=== PATIENT | male | born 1970 | race Hispanic/Latino ===

== ENCOUNTER 2024-11-15 13:33 | Emergency (ER) | payer MEDICAID ==
[~2024-11-15] VITALS: Ht 172.7 cm; Wt 104.3 kg
[2024-11-15 15:45] VITALS: PULSE 80; RESP 18; TEMP 98.5
[2024-11-15] MEDS ORDERED: DOXYCYCLINE HY100 MG PO (17:29)
[2024-11-15] MEDS ORDERED: CIPRO500 MG PO (17:29)
[2024-11-15 18:30] VITALS: BP 136/92; PULSE 78; RESP 19; O2SAT 95
== END 2024-11-15 17:51 | disposition home or self-care (01) ==
LOC: ER 14:00
DX: L03.115 Cellulitis of right lower limb (principal); E11.9 Type 2 diabetes mellitus without complications; E78.5 Hyperlipidemia, unspecified; Z89.511 Acquired absence of right leg below knee
CPT/HCPCS: 99282